=== PATIENT | male | born 1995 | race American Indian/Alaskan Native ===

== ENCOUNTER 2019-01-07 11:16 | Emergency (ER) | payer SELFPAY ==
--- NOTE | 2019-01-07 11:28 | Emergency Department Report ---
Blank Doc - Documentation Documentation: This is a 23-year-old male that presents with n/v and abdominal pain. Stated also has coughing. This initial assessment/diagnostic orders/clinical plan/treatment(s) is/are subject to change based on patient's health status, clinical progression and re- assessment by fellow clinical providers in the ED. Further treatment and workup at subsequent clinical providers discretion. Patient/guardians urged not to elope from the ED as their condition may be serious if not clinically assessed and managed. Initial orders include: 1- Patient sent to [facility] for further evaluation and treatment 2- labs 3- UA 4- XR abd/chest
--- NOTE | 2019-01-07 12:22 | XRay Report ---
Examination: Abdominal radiograph series with PA chest radiograph, 01/07/2019 Clinical information: Generalized abdominal pain and cough Comparison: None. Findings: The bowel gas pattern appears nonobstructive. No radiodensities overlie the abdomen to sugg est obstructing ureteral stone. Visualized bony structures demonstrates no evidence of acute bony abnormality. The accompanying PA chest radiograph demonstrates no evidence of acute cardiopulmonary process. Impression: 1. No radiographic evidence of acute intra-abdominal process. Signer Name: Myra Kern MD Signed: 01/07/2019 12:18 PM Workstation Name: [email or web address] [email or web address]
[2019-01-07 12:36] LABS: Basophils % (Auto) 0.2 % (0.0-1.8); Hematocrit 50.1 % (35.5-45.6); Hemoglobin 16.4 gm/dl (11.8-15.2); Lymphocytes # (Auto) 1.4 K/mm3 (1.2-5.4); Lymphocytes % (Auto) 10.9 % (13.4-35.0); Mean Corpuscular HGB Conc 33 % (32-34); Mean Corpuscular Volume 89 fl (84-94); Monocytes # (Auto) 0.5 K/mm3 (0.0-0.8); Monocytes % (Auto) 3.5 % (0.0-7.3); Platelet Count 278 K/mm3 (140-440); Red Blood Count 5.61 M/mm3 (3.65-5.03); Red Cell Distribution Width 13.6 % (13.2-15.2)
[2019-01-07 12:45] LABS: Bilirubin,Urine SM (Negative); Blood,Urine NEG (Negative); Color,Urine Amber (Yellow); Mucus,Urine 3+ /HPF
[2019-01-07 12:48] LABS: Alanine Aminotransferase 15 units/L (7-56); Albumin 4.5 g/dL (3.9-5); BUN/Creatinine Ratio 6; Blood Urea Nitrogen 7 mg/dL (9-20); Calcium 10.1 mg/dL (8.4-10.2); Hemolysis Index 10
[2019-01-07 12:53] LABS: Ictotest,Urine Negative (Negative)
[2019-01-07] MEDS ORDERED: ZOFRAN IV ONE (13:47)
[2019-01-07] MEDS ORDERED: NACL 0.9% 1000 ML 1,000 ML IV ONE ×2 (13:47→16:14)
[2019-01-07] MEDS ORDERED: BENTYL PO ONE (13:47)
--- NOTE | 2019-01-07 14:07 | Emergency Department Report ---
ED General Adult HPI - General Chief complaint: Nausea/Vomiting/Diarrhea Stated complaint: N/V x2 DAYS Time Seen by Provider: 01/07/19 11:27 Source: patient Mode of arrival: Ambulatory Limitations: No Limitations - History of Present Illness Initial comments: 23-year-old -Iranian male presents to the emergency room stating he's had nausea vomiting fever coughing 2 days. Patient states it every year when the season changes this happens to him. Patient states that he was referred to GI specialist in June but unable to afford the visit. Patient reports that the pain is crampy and diffuse. Patient last vomited last night. He has no kn own drug allergies currently takes no medications on a daily basis and has no past medical history. Onset/Timin -: days(s) Location: abdomen Radiation: non-radiation Severity scale (0 -10): 10 Quality: constant, other (cramping) Consistency: constant Associated Symptoms: fever/chills, nausea/vomiting Treatments Prior to Arrival: none - Related Data Previous Rx's Medication Instructions Recorded Last Taken Type Ondansetron [Zofran Odt] 4 mg PO Q8HR #8 tab.rapdis 01/07/19 Unknown Rx Allergies Allergy/AdvReac Type Severity Reaction Status Date / Time No Known Allergies Allergy Unverified 01/07/19 11:26 ED Review of Systems ROS: Stated complaint: N/V x2 DAYS Other details as noted in HPI Comment: All other systems reviewed and negative ED Past Medical Hx - Past Medical History Previous Medical History?: No - Surgical History Past Surgical History?: No - Medications Home Medications: Home Medications Medication Instructions Recorded Confirmed Last Taken Type Ondansetron [Zofran Odt] 4 mg PO Q8HR #8 tab.rapdis 01/07/19 Unknown Rx ED Physical Exam - General Limitations: No Limitations General appearance: alert, in no apparent distress - Head Head exam: Present: atraumatic, normocephalic - Eye Eye exam: Present: normal appearance - ENT ENT exam: Present: mucous membranes moist - Respiratory Respiratory exam: Present: normal lung sounds bilaterally. Absent: respiratory distress - Cardiovascular Cardiovascular Exam: Present: tachycardia - GI/Abdominal GI/Abdominal exam: Present: soft, tenderness (epigastric). Absent: distended - Extremities Exam Extremities exam: Present: normal inspection, full ROM - Neurological Exam Neurological exam: Present: alert, oriented X3 - Psychiatric Psychiatric exam: Present: normal affect, normal mood - Skin Skin exam: Present: warm, dry, intact, normal color. Absent: rash ED Course Vital Signs 01/07/19 01/07/19 14:35 14:36 Temperature 98.9 F Pulse Rate 79 Respiratory 16 16 Rate Blood Pressure 138/79 [Right] O2 Sat by Pulse 100 100 Oximetry ED Medical Decision Making - Lab Data Result diagrams: 01/07/19 12:02 01/07/19 12:02 - Radiology Data Radiology results: report reviewed Patient: SAMIA KU MR#: Selam [id number] : 1995 Acct:[id number] Age/Sex: 23 / M ADM Date: 01/07/19 Loc: ED Attending Dr: Ordering Physician: MARCE CHAN NP Date of Service: 01/07/19 Procedure(s): XR abd series w cxr 1V Accession Number(s): [id number] cc: MARCE CHAN NP Fluoro Time In Minutes: Examination: Abdominal radiograph series with PA chest radiograph, 01/07/2019 Clinical information: Generalized abdominal pain and cough Comparison: None. Findings: The bowel gas pattern appears nonobstructive. No radiodensities overlie the abdomen to suggest obstructing ureteral stone. Visualized bony structures demonstrates no evidence of acute bony abnormality. The accompanying PA chest radiograph demonstrates no evidence of acute cardiopulmonary process. Impression: 1. No radiographic evidence of acute intra-abdominal process. Signer Name: Myra Kern MD Signed: 01/07/2019 12:18 PM Workstation Name: [id number] Transcribed By: EB Dictated By: Myra Kern MD Electronically Authenticated By: Myra Kern MD Signed Date/Time: 01/07/19 1218 DD/ 1216 TD/TT: - Medical Decision Making 23-year-old -Iranian male presents to the emergency room stating he's had nausea vomiting fever coughing 2 days. Patient states it every year when the season changes this happens to him. Patient states that he was referred to GI specialist in June but unable to afford the visit. Patient reports that the pain is crampy and diffuse. Patient last vomited last night. He has no known drug allergies currently takes no medications on a daily basis and has no past medical history. IV with normal saline Bentyl and Levsin chest x-ray has been ordered. Patient appears to be heme concentrated. Critical care attestation.: If time is entered above; I have spent that time in minutes in the direct care of this critically ill patient, excluding procedure time. ED Disposition Clinical Impression: Viral syndrome Disposition: DC-01 TO HOME OR SELFCARE Is pt being admited?: No Does the pt Need Aspirin: No Condition: Stable Instructions: Viral Syndrome (ED) Additional Instructions: Chest x-ray was negative labs are stable. He can try [id number] Zyrtec or Claritin. Increase her fluid intake and advance her diet as tolerated. Prescriptions: Ondansetron [Zofran Odt] 4 mg PO Q8HR #8 tab.rapdis Referrals: TRE VALDEZ MD [Primary Care Provider] - 3-5 Days [facility] [Provider Group] - 3-5 Days
[2019-01-07 17:49] VITALS: BP 129/70
== END 2019-01-07 17:47 | disposition home or self-care (01) ==
LOC: ED 11:16
DX: B34.9 Viral infection, unspecified (principal)
CPT/HCPCS: 36415; 74022; 80053; 81001; 83690; 85025; 96361; 96374; 99284; J2405; J7030

== ENCOUNTER 2022-02-08 21:04 | Emergency (ER) | payer SELFPAY ==
--- NOTE | 2022-02-08 23:12 | Emergency Department Report ---
ED General Adult HPI - General Chief complaint: Chest Pain Stated complaint: CHEST PAIN PUI?: No Time Seen by Provider: 02/08/22 22:56 Source: patient Mode of arrival: Stretcher Limitations: No Limitations - History of Present Illness Initial comments: 26-year-old male with medical history of diabetes and also stomach ulcer came in today with concerns of chest pain that started today. According patient chest pain is sharp sensation localized in the center of the chest. Patient said that it comes and goes and it seems that stress makes it come back and laying flat makes it go away. She also endorsed low back pain but denies any trauma or injury. Patient denies saddle anesthesia or bowel bladder incontinence. Patient denies any other symptoms. Denies fever chill night sweat dizziness blurred vision lightheadedness headache tinnitus ear pain runny nose sore throat loss of taste loss smell palpitation short breath cough abdominal pain nausea vomiting diarrhea constipation joint pain muscle pain new rash and heat or cold intolerance. - Related Data Previous Rx's Medication Instructions Recorded Last Taken Type Ondansetron [Zofran Odt] 4 mg PO Q8HR #8 tab.rapdis 01/07/19 Unknown Rx Allergies Allergy/AdvReac Type Severity Reaction Status Date / Time No Known Allergies Allergy Unverified 01/07/19 11:26 ED Review of Systems ROS: Stated complaint: CHEST PAIN Other details as noted in HPI Comment: All other systems reviewed and negative ED Past Medical Hx - Past Medical History Previous Medical History?: Yes Hx Diabetes: Yes - Medications Home Medications: Home Medications Medication Instructions Recorded Confirmed Last Taken Type Ondansetron [Zofran Odt] 4 mg PO Q8HR #8 tab.rapdis 01/07/19 Unknown Rx ED Physical Exam - General Limitations: No Limitations General appearance: alert, in no apparent distress - Head Head exam: Present: atraumatic, normocephalic, normal inspection - Eye Eye exam: Present: normal appearance, PERRL, EOMI Pupils: Present: normal accommodation - ENT ENT exam: Present: normal exam, mucous membranes moist - Neck Neck exam: Present: normal inspection, full ROM - Respiratory Respiratory exam: Present: normal lung sounds bilaterally - Cardiovascular Cardiovascular Exam: Present: regular rate, normal rhythm, normal heart sounds - GI/Abdominal GI/Abdominal exam: Present: soft - Extremities Exam Extremities exam: Present: normal inspection, full ROM, normal capillary refill - Back Exam Back exam: Present: normal inspection, full ROM - Neurological Exam Neurological exam: Present: alert, oriented X3, CN II-XII intact - Psychiatric Psychiatric exam: Present: normal affect, normal mood - Skin Skin exam: Present: normal color ED Course Vital Signs 02/08/22 21:10 Temperature 99.8 F H Pulse Rate 107 H Respiratory 16 Rate Blood Pressure 155/105 [Right] O2 Sat by Pulse 96 Oximetry ED Medical Decision Making - Lab Data Result diagrams: 02/08/22 23:14 02/08/22 23:14 Critical care attestation.: If time is entered above; I have spent that time in minutes in the direct care of this critically ill patient, excluding procedure time. ED Disposition Clinical Impression: Non-cardiac chest pain Disposition: 01 HOME / SELF CARE / HOMELESS Is pt being admited?: No Does the pt Need Aspirin: No Condition: Stable Instructions: Nonspecific Chest Pain, Adult Additional Instructions: YOUR WORK UP IN THE EMERGENCY ROOM WAS UNREMARKABLE. MAKE A FOLLOW UP APPOINTMENT WITH YOUR PRIMARY CARE PROVIDER TO BE SEEN WITHIN 3 DAYS FOR FURTHER OUTPATIENT EVALUATION. Time of Disposition: 02:14
--- NOTE | 2022-02-08 23:31 | XRay Report ---
CHEST 1 VIEW INDICATION / CLINICAL INFORMATION: CHEST PAIN. FINDINGS: SUPPORT DEVICES: None. HEART / MEDIASTINUM: No significant abnormality. LUNGS / PLEURA: No significant pulmonary or pleural abnormality. No pneumothorax. ADDITIONAL FINDINGS: No significant additional findings. IMPRESSION: 1. No acute findings. Signer Name: Ferny Franco MD Signed: 02/08/2022 11:26 PM Workstation Name: [email or web address]
[2022-02-08 23:47] LABS: Hematocrit 39.8 % (35.5-45.6); Hemoglobin 13.2 gm/dl (11.8-15.2); Mean Corpuscular HGB Conc 33 % (32-34); Mean Corpuscular Volume 86 fl (84-94); Platelet Count 245 K/mm3 (140-440); Red Blood Count 4.64 M/mm3 (3.65-5.03); Red Cell Distribution Width 14.8 % (13.2-15.2)
[2022-02-09 00:29] LABS: Alanine Aminotransferase 11 units/L (7-56); Albumin 4.6 g/dL (3.9-5); BUN/Creatinine Ratio 9; Blood Urea Nitrogen 9 mg/dL (9-20); Calcium 9.6 mg/dL (8.4-10.2); Hemolysis Index 13
[2022-02-09 02:51] LABS: Mucus,Urine 1+ /HPF
[2022-02-09 02:56] LABS: Color,Urine Yellow (Yellow)
[2022-02-09 02:59] LABS: Amphetamine Screen,Urine PRESUMPTIVE NEGATIVE; Benzodiazepines Screen,Urine PRESUMPTIVE NEGATIVE; Cannabinoid Screen,Urine PRESUMPTIVE POSITIVE; Cocaine Screen,Urine PRESUMPTIVE POSITIVE; Methadone Screen,Urine PRESUMPTIVE NEGATIVE; Opiate Screen,Urine PRESUMPTIVE NEGATIVE
[2022-02-09 03:41] LABS: Basophils % (Auto) 0.5 % (0.0-1.8); Eosinophils # (Auto) 0.1 K/mm3 (0.0-0.4); Eosinophils % (Auto) 0.5 % (0.0-4.3); Hematocrit 39.4 % (35.5-45.6); Hemoglobin 13.2 gm/dl (11.8-15.2); Lymphocytes # (Auto) 2.8 K/mm3 (1.2-5.4); Lymphocytes % (Auto) 29.7 % (13.4-35.0); Mean Corpuscular HGB Conc 34 % (32-34); Mean Corpuscular Volume 85 fl (84-94); Monocytes # (Auto) 0.8 K/mm3 (0.0-0.8); Monocytes % (Auto) 8.6 % (0.0-7.3); Platelet Count 246 K/mm3 (140-440); Red Blood Count 4.62 M/mm3 (3.65-5.03); Red Cell Distribution Width 14.6 % (13.2-15.2)
[2022-02-09 03:53] LABS: Creatine Kinase MB 1.6 ng/mL (0.0-4.0)
[2022-02-09 04:14] VITALS: BP 155/88
--- NOTE | 2022-02-09 13:20 | Electrocardiograph Report ---
[facility] Test Date: 2022-02-09 Test Time: 02:32:11 Pat Name: SAMIA AMAYA Department: Room: Gender: M [employer]: DAMASO : 1995 Requested By: KRISTIAN BRAVO Order Number: [id number] Reading MD: Etta Stern Measurements Intervals [place] Rate: 81 P: -40 [place]: 152 QRS: 77 QRSD: 78 T: 30 QT: 380 QTc: 441 Interpretive Statements Sinus arrhythmia Consider left ventricle hypertrophy No previous ECG available for comparison Electronically Signed On 02-09-2022 13:20:44 EDT by Etta Stern
== END 2022-02-09 04:14 | disposition home or self-care (01) ==
LOC: ED 21:04
DX: R07.9 Chest pain, unspecified (principal); E11.9 Type 2 diabetes mellitus without complications; Z79.899 Other long term (current) drug therapy
CPT/HCPCS: 36415; 71045; 80053; 80307; 81001; 82550; 82553; 83690; 83735; 84484; 85025; 85027; 85379; 93005; 99284